=== PATIENT | female | born 2005 | race Caucasian/White ===

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

== ENCOUNTER 2023-01-25 15:08 | Emergency (ER) | payer BC, MEDICAID, SELFPAY ==
[2023-01-25 15:12] VITALS: BP 123/83; PULSE 92; O2SAT 97; BMI 29.9
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
[2023-01-25 15:52] LABS: Basophils # 0.1 10^3/uL (0.0-0.1); Basophils % 0.7 %; Eosinophils # 0.2 10^3/uL (0.0-0.8); Eosinophils % 2.7 %; Hematocrit 45.8 % (37.0-47.0); Hemoglobin 15.2 g/dL (11.5-15.3); Lymphocytes # 2.3 10^3/uL (1.5-6.5); Lymphocytes % 29.9 %; Mean Corpuscular HGB Conc 33.2 g/dL (30.0-36.0); Mean Corpuscular Hemoglobin 28.9 pg (28.0-34.0); Mean Corpuscular Volume 87.1 fl (81-99); Mean Platelet Volume 9.9 fL (7.4-10.4); Monocytes # 0.5 10^3/uL (0.2-0.9); Neutrophils % 58.4 %; Nucleated Red Blood Cells % 0 %; Platelet Count 279 10^3/cmm (130-400); Red Blood Count 5.26 10^6/uL (4.1-5.3); Red Cell Distribution Width 12.9 % (12.1-15.1); White Blood Count 7.5 10^3/uL (4.5-13.0)
[2023-01-25 16:20] LABS: Alanine Aminotransferase 15 U/L (0-33); Albumin Level 4.4 g/dL (3.5-5.2); Alkaline Phosphatase 123 U/L (35-105); Anion Gap 14.6 (5-19); Aspartate Amino Transferase 23 U/L (0-32); Blood Urea Nitrogen 7 mg/dL (6-20); Calcium 9.4 mg/dL (8.5-10.5); Carbon Dioxide 26 mmol/L (22-29); Chloride 106 mmol/L (98-107); Globulin 3.2 g/dL (1.3-4.6); Glomerular Filtration Rate 107.8 mL/min (90-130); Glucose 105 mg/dL (65-115); Osmolality Calculated 292 mOsm/kg (285-295); Potassium 4.6 mmol/L (3.5-5.1); Sodium 142 mmol/L (136-145); Total Bilirubin 0.3 mg/dL (0.15-1.2); Total Protein 7.6 g/dL (6.6-8.7)
[2023-01-25 17:30] LABS: HCG, Serum Qual Negative (Negative)
[2023-01-25 17:36] VITALS: BP 112/76; PULSE 84; TEMP 37.1; O2SAT 99
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
== END 2023-01-25 20:56 | disposition home or self-care (01) ==
PROVIDERS: Emergency Medicine; Family Medicine; Emergency Provider Nurse Practitioner Family; PCP Nurse Practitioner Family
DX: S39.012A Strain of muscle, fascia and tendon of lower back, initial encounter (principal); V59.9XXA Occupant (driver) (passenger) of pick-up truck or van injured in unspecified traffic accident, initial encounter
CPT/HCPCS: 36415; 72131; 80053; 84702; 84703; 85025; 99284

== ENCOUNTER 2023-04-26 08:00 | Emergency (ER) | payer MEDICAID, SELFPAY ==
--- NOTE | 2023-04-26 08:01 | W.ED.HA ---
HPI - Headache General: Chief Complaint: Headache Stated Complaint: migraine, since midnight Time Seen by Provider: 04/26/23 08:01 Source: patient Mode of arrival: ambulatory Limitations: no limitations History of Present Illness: Patient is a 17-year-old female with history of migraine headaches who presents to the emergency department complaining of headache onset since midnight last night. Patient states she has a history of migraines where she is normally able to [place] them with [id number] Ibuprofen and sleep, but states that she was unable to get rid of the migraine last night. She reports associated nausea and dizziness (which is typical for her migraines), and denies sensation of aura prior to headache. She has been seen by specialist for her migraines in the past, but was unable to receive special testing due to insurance complications. Her current migraine is rated at a 7/10 and has been constant since it came on last night. She denies any visual disturbances, syncope, chest pain, or any other symptoms. Bright lights make her migraines worse. Patient states that there is a possibility of , as she is 2 weeks late on her menstrual cycle. Denies any new or changes in medication. MD elicited complaint: headache Pertinent past history: migraines Onset (ago): hour(s) Onset description: gradually Severity: moderate Pain scale (0-10): 7 Quality & Timing: similar to previous headaches Exacerbating factors: light Relieving factors: nothing Context: occurred at rest Associated symptoms: Reports nausea; Deny chest pain, confusion, fever(s), lightheadedness, rash, syncope or vomiting Treatments prior to arrival: ibuprofen Review of Systems Const: Denies: fever(s) or chills Eyes: Denies: change in vision, blurry vision, photophobia, floaters or seeing flashes Card: Denies: chest pain, palpitations, irregular heart rhythm, lightheadedness, syncope or dyspnea on exertion Resp: Denies: dyspnea, productive cough or pain on inspiration GI: Reports: nausea; Denies: abdominal pain, vomiting, heartburn or diarrhea : Denies: dysuria Musc: Denies: neck pain, back pain or joint pain Skin/Breast: Denies: rash Neuro: Reports: headache(s) and dizziness; Denies: numbness in extremities, weakness in extremities, sensory changes, lack of coordination, difficulty walking, confusion or Slurred speech present PFSH ED PFSH: Medical History Gastroenteritis Migraine without aura No pertinent past medical history neghx:htn,dm,thyroid,dvt/pe Oral contraception initiation Surgical History [place] teeth extracted (~02/2020) Family History Grandfather Stroke Paternal Colon cancer Maternal--- dx at age 60 Grandmother Breast cancer Paternal-- unknown dx age Denies family history of Ovarian cancer Diabetes Clotting disorder Heart disease Hypercholesteremia Bleeding disorder Hypertension Uterine cancer Thyroid disease Physical Exam Const: COMMON NORMALS: no acute distress, patient oriented x3, no limitations, healthy appearing, alert and well nourished GENERAL APPEARANCE: cooperative ORIENTATION/CONSCIOUSNESS: Yes awake, Yes oriented to person, Yes oriented to place and Yes oriented to time HENMT: COMMON NORMALS: normocephalic and atraumatic HEAD & SCALP: normal to inspection, normocephalic and atraumatic FACE & SINUS: normal facial exam Eye: COMMON NORMALS: Equal, round and reactive pupils present and EOMs intact bilaterally GENERAL EYE: appearance normal, both eyes and all related structures and normal light reflex PUPIL: Yes Equal, round and reactive pupils present DIRECT OPHTHALMOSCOPY: Yes normal light reflex Neck/C-Spine: COMMON NORMALS: full ROM, no lymphadenopathy, supple and no meningeal signs Resp: COMMON NORMALS: normal respiratory effort and clear to auscultation bilaterally AUSCULTATION: clear to auscultation bilaterally Cardio: COMMON NORMALS: regular rate and regular rhythm RATE: regular rate RHYTHM: regular rhythm Extremity: COMMON NORMALS: normal to inspection GENERAL: Yes normal exam except as noted Neuro: WILDA COMA SCALE: document GCS findings [place] coma scale eye opening: Spontaneous [place] coma scale verbal response: Orientated [place] coma scale motor response: Obey commands [place] coma scale total score: 15 COMMON NORMALS: patient oriented x3, CN's II-XII intact bilaterally, moves all extremities, no focal motor deficits, no sensory deficits noted and gait normal SENSORIUM/ORIENTATION: Yes alert, Yes oriented to person, Yes oriented to place and Yes oriented to time MENINGEAL SIGNS: Yes no meningeal signs Skin: COMMON NORMALS: no rashes or lesions noted GENERAL SKIN EXAM: no rashes or lesions noted Course Vital Signs: Vital signs: Vital Signs Temperature 98.0 F 04/26/23 08:10 Pulse Rate 95 04/26/23 08:10 Respiratory Rate 16 04/26/23 08:10 Blood Pressure 140/89 04/26/23 08:10 Pulse Oximetry 96 04/26/23 08:10 Oxygen Delivery Me thod Room Air 04/26/23 08:10 MDM - Headache Medical Decision Making Patient is a 17-year-old female here with complaints of a migraine headache. She states she has a longstanding history of migraine headaches and states her headache today feels identical to previous headaches. She has no red flags on history or physical examination. Headache is much improved after IV medications given here. She feels ready to go home at this time. Recommend follow-up with her primary care provider. She states migraines are fairly infrequent and does not feel she needs prophylactic or prescription abortive therapy at this time. Return ED precautions given. Lab Data Laboratory Results HCG, Qual Negative (Negative) 04/26/23 08:24 Discharge Plan Discharge Patient Disposition: Home Clinical Impression: Migraine Qualifiers: Migraine type: without aura Status migrainosus presence: without status migrainosus Intractability: not intractable Qualified Code(s): G43.009 - Migraine without aura, not intractable, without status migrainosus Condition: Stable Prescriptions: No Action ibuprofen 200 mg Tablet 400 mg PO Q6H PRN (Reason: Pain) Discharge Orders: Discharge ED (Routine); Ordered 04/26/23 Ordered By: Tana Sainz Referrals: Tere Luo FNP [Primary Care Provider] - Patient Instructions: Headache - Migraine (Adult) Coding Level of Care Code ED Manager Personal for Madhavg Boby
[2023-04-26 08:10] VITALS: BP 140/89; PULSE 95; RESP 16; TEMP 36.7; O2SAT 96
[2023-04-26 08:12] VITALS: BMI 26.6
[2023-04-26 08:32] LABS: HCG Qualitative Urine. Negative (Negative)
[2023-04-26] MEDS: sodium chloride 0.9% 1,000 ML 999 ML IV (08:48)
[2023-04-26] MEDS: dexamethasone 10 mg/mL INJ 6 MG IVP (08:49)
[2023-04-26] MEDS: ketorolac 60 mg/2 mL INJ 30 MG IVP (08:49)
[2023-04-26] MEDS: ondansetron 2 mg/ML SDV 2 mL 4 MG IVP (08:49)
[2023-04-26] MEDS: diphenhydrAMINE 50 mg/mL SDV 1mL IVP (08:49)
== END 2023-04-26 09:59 | disposition home or self-care (01) ==
PROVIDERS: Emergency Provider Physician Assistant; PCP Nurse Practitioner Family
DX: G43.009 Migraine without aura, not intractable, without status migrainosus (principal)
CPT/HCPCS: 81025; 96374; 96375; 99284; J1100; J1200; J1885; J2405; J7030

== ENCOUNTER → 2023-08-16 08:44 | Outpatient (BNVA) | payer MEDICAID, SELFPAY | PROVIDERS: PCP Nurse Practitioner Family; Visit Provider Nurse Practitioner Family | DX: R11.0 Nausea (principal) | CPT/HCPCS: 81025 ==

== ENCOUNTER 2023-09-06 15:26 | Emergency (ER) | payer MEDICAID, SELFPAY ==
[2023-09-06 15:45] VITALS: BP 143/85; PULSE 76; RESP 16; O2SAT 98; BMI 32.4
--- NOTE | 2023-09-06 16:03 | ED_ITS ---
HPI - 2 General: Chief complaint: Vaginal Bleeding Stated complaint: vaginal bleeding, 9 weeks Time Seen by Provider: 09/06/23 15:48 Source: patient Mode of arrival: ambulatory History of Present Illness: 18-year-old female G2, P0 SAB 1 presents emergency room complaining vaginal bleeding. She has a confirmed intrauterine at approximately 9 weeks gestation. She had previously seen Dr. Vital of [facility] and confirmed an intrauterine by ultrasound. The patient and her were being intermittent today and she began to have some vaginal bleeding. It seemed excessive but stopped suddenly after they ceased activities. She has not had any further bleeding. She has no abdominal pain or cramping. Patient had a ultrasound of [facility] confirming intrauterine she actually showed me a picture that they had given her at the time of the ultrasound clearly demonstrates an intrauterine MD Complaint: abdominal pain Onset (ago): minute(s) Pain Consistency: intermittent and now resolved Relieving factors: none Exacerbating factors: other (Sexual activity) Vaginal bleeding: heavy (Resolved now) Associated symptoms: Reports vaginal bleeding; Deny abdominal pain, dyspareunia, dysuria, headache(s), malaise, nausea, rash, seizures, short of breath, syncope, vaginal discharge, visual changes, vomiting or weakness Review of Systems 2 Const: Denies: fever(s), chills or malaise Card: Denies: chest pain or syncope Resp: Denies: dyspnea GI: Denies: abdominal pain, nausea or vomiting : Reports: vaginal bleeding; Denies: dysuria, urinary frequency, urinary urgency, vaginal discharge or dyspareunia Musc: Denies: neck pain or back pain Skin/Breast: Denies: rash Neuro: Denies: headache(s) PFSH ED 2 PFSH: Medical History Oral contraception initiation Gastroenteritis Migraine without aura No pertinent past medical history neghx:htn,dm,thyroid,dvt/pe Surgical History [place] teeth extracted (~02/2020) Family History Grandfather Stroke Paternal Colon cancer Maternal--- dx at age 60 Grandmother Breast cancer Paternal-- unknown dx age Denies family history of Ovarian cancer Diabetes Clotting disorder Heart disease Hypercholesteremia Bleeding disorder Hypertension Uterine cancer Thyroid disease Physical Exam 2 Const: COMMON NORMALS: no acute distress GENERAL APPEARANCE: cooperative and comfortable ORIENTATION/CONSCIOUSNESS: Yes awake, Yes oriented to person, Yes oriented to place and Yes oriented to time HENMT: COMMON NORMALS: normocephalic, atraumatic and hearing grossly normal bilaterally HEAD & SCALP: normocephalic and atraumatic Resp: COMMON NORMALS: normal respiratory effort, No retractions, No use of accessory muscles and clear to auscultation bilaterally AUSCULTATION: clear to auscultation bilaterally Cardio: COMMON NORMALS: regular rate, regular rhythm and No murmurs present (Cardio) RATE: regular rate RHYTHM: regular rhythm GI: COMMON NORMALS: Soft to palpation and No hepatosplenomegaly present A USCULTATION: Yes normoactive bowel sounds PALPATION: Yes Soft to palpation, No Tenderness to palpation present (GI), No Guarding due to palpation present (GI) and Yes No hepatosplenomegaly present : SPECULUM EXAM - VAGINA: Yes vaginal bleeding OB/EXTERNAL & SPECULUM: v aginal bleeding Extremity: COMMON NORMALS: normal to inspection, capillary refill normal, no clubbing, cyanosis or edema, no calf tenderness and no pedal edema Neuro: SENSORIUM/ORIENTATION: Yes oriented to person, Yes oriented to place and Yes oriented to time Skin: COMMON NORMALS: no rashes or lesions noted GENERAL SKIN EXAM: no rashes or lesions noted Course 2 Vital Signs: Vital signs: Vital Signs Pulse Rate 75 09/06/23 16:48 Respiratory Rate 17 09/06/23 16:48 Blood Pressure 127/78 09/06/23 16:48 Pulse Oximetry 99 09/06/23 16:48 Oxygen Delivery Me thod Room Air 09/06/23 15:45 MDM - OB/Uterine Contractions Medical Decision Making Confirmed intrauterine vaginal bleeding after digital manipulation has resolved. Beta-hCG is actually slightly above expected range for 9 weeks gestation. Recommend repeat beta-hCG in 2 to 3 days. Medical Records I reviewed the patient's medical records. Lab Data I reviewed the patient's lab results. 09/06/23 16:44 09/06/23 16:44 Laboratory Results WBC 12.62 10^3/uL (4.5-13.0) 09/06/23 16:44 RBC 4.55 10^6/uL (3.85-5.65) 09/06/23 16:44 Hgb 13.70 g/dL (12.4-14.8) 09/06/23 16:44 Hct 40.6 % (36-47) 09/06/23 16:44 MCV 89.2 fl (85-98) 09/06/23 16:44 MCH 30.1 pg (27-33) 09/06/23 16:44 MCHC 33.7 g/dL (30-55) 09/06/23 16:44 RDW 12.8 % (12.1-15.1) 09/06/23 16:44 Plt Count 242 10^3/cmm (157-399) 09/06/23 16:44 MPV 9.8 fL (7.4-10.4) 09/06/23 16:44 Neut % (Auto) 68.9 % 09/06/23 16:44 Lymph % (Auto) 21.9 % 09/06/23 16:44 [place] % (Auto) 6.8 % 09/06/23 16:44 Eos % (Auto) 1.8 % 09/06/23 16:44 Baso % (Auto) 0.3 % 09/06/23 16:44 Neut # (Auto) 8.69 10^3/uL (1.8-8.0) H 09/06/23 16:44 Lymph # (Auto) 2.8 10^3/uL (1.5-6.5) 09/06/23 16:44 [place] # (Auto) 0.9 10^3/uL (0.2-0.9) 09/06/23 16:44 Eos # (Auto) 0.2 10^3/uL (0.0-0.8) 09/06/23 16:44 Baso # (Auto) 0.0 10^3/uL (0.0-0.1) 09/06/23 16:44 Nucleated RBC % (auto) 0 % 09/06/23 16:44 Nucleated RBCs # 0.0 /100WBC 09/06/23 16:44 Sodium 137 mmol/L (136-145) 09/06/23 16:44 Potassium 4.1 mmol/L (3.5-5.1) 09/06/23 16:44 Chloride 105 mmol/L (98-107) 09/06/23 16:44 Carbon Dioxide 21 mmol/L (22-29) L 09/06/23 16:44 Anion Gap 15.1 (5-19) 09/06/23 16:44 BUN 5 mg/dL (6-20) L 09/06/23 16:44 Creatinine 0.6 mg/dL (0.5-0.9) 09/06/23 16:44 GFR Calculation 127.5 mL/min (90-130) 09/06/23 16:44 Glucose 84 mg/dL (65-115) 09/06/23 16:44 Calculated Osmolality 280 mOsm/kg (285-295) L 09/06/23 16:44 Calcium 9.2 mg/dL (8.5-10.5) 09/06/23 16:44 Total Bilirubin 0.2 mg/dL (0.15-1.2) 09/06/23 16:44 AST 14 U/L (0-32) 09/06/23 16:44 ALT 17 U/L (0-33) 09/06/23 16:44 Alkaline Phosphatase 76 U/L (35-105) 09/06/23 16:44 Total Protein 6.7 g/dL (6.6-8.7) 09/06/23 16:44 Albumin 3.8 g/dL (3.5-5.2) 09/06/23 16:44 Globulin 2.9 g/dL (1.3-4.6) 09/06/23 16:44 Ser , Semi-Qnt 349053.00 mIU/mL 09/06/23 16:44 Urine Color Yellow (Yellow) 09/06/23 16:49 Urine Appearance Sl hazy (CLEAR) A 09/06/23 16:49 Urine pH 6 (5-7) 09/06/23 16:49 Ur Specific [place] 1.020 (1.005-1.030) 09/06/23 16:49 Urine Protein Neg (Negative) 09/06/23 16:49 Urine Glucose (UA) Norm (Normal) 09/06/23 16:49 Urine Ketones 1+ (Negative) H 09/06/23 16:49 Urine Blood 3+ (Negative) H 09/06/23 16:49 Urine Nitrate Negative (Negative) 09/06/23 16:49 Urine Bilirubin Neg (Negative) 09/06/23 16:49 Urine Urobilinogen Neg mg/dL (Negative) 09/06/23 16:49 Ur Leukocyte Esterase 2+ (Negative) H 09/06/23 16:49 Urine RBC 0-4 /hpf (0-2) H 09/06/23 16:49 Urine WBC 15-25 /hpf (0-5) H 09/06/23 16:49 Ur Squamous Epith Cells 5-10 /hpf (0-5) H 09/06/23 16:49 Amorphous Sediment Not Reportable 09/06/23 16:49 Urine Bacteria 2+ /hpf (NONE) H 09/06/23 16:49 Urine Mucus 1+ /hpf 09/06/23 16:49 No radiology studies performed this visit Discharge Plan Discharge Patient Disposition: Home Clinical Impression: Vaginal bleeding, Currently Condition: Stable Prescriptions: No Action ibuprofen 200 mg Tablet 400 mg PO Q6H PRN (Reason: Pain) Discharge Orders: Discharge ED (Routine); Ordered 09/06/23 Ordered By: Jeanmarie Edwards Referrals: Tere Luo FNP [Primary Care Provider] - Discharge Diet: Usual diet Discharge Activity: Increase activity as tolerated Patient Instructions: Opioid Safety, Pain Management Activity Restrictions/Additional Instructions: Thank you for choosing [facility] for your healthcare needs today. Please realize this is an emergency room and that we are providing you with a medical screening exam and this may not be complete and all inclusive of all the testing and or work up that you may need to determine your ailment or severity of your illness. It is very important that you follow up as instructed or that you return to the Emergency Department should you have concerns or if your condition changes or worsens in any way. You are seen today after an episode of vaginal bleeding. Your beta-hCG was over 200,000. Follow-up with your primary care doctor for repeat beta-hCG in 72 hours. Coding Level of Care Code ED Java Systems Analyst for Teresa Landis
[2023-09-06 16:48] VITALS: BP 127/78; PULSE 75; RESP 17; O2SAT 99
[2023-09-06 16:48] LABS: Basophils % 0.3 %; Eosinophils # 0.2 10^3/uL (0.0-0.8); Eosinophils % 1.8 %; Hematocrit 40.6 % (36-47); Lymphocytes # 2.8 10^3/uL (1.5-6.5); Lymphocytes % 21.9 %; Mean Corpuscular HGB Conc 33.7 g/dL (30-55); Mean Corpuscular Hemoglobin 30.1 pg (27-33); Mean Corpuscular Volume 89.2 fl (85-98); Mean Platelet Volume 9.8 fL (7.4-10.4); Monocytes # 0.9 10^3/uL (0.2-0.9); Monocytes % 6.8 %; Neutrophils # 8.69 10^3/uL (1.8-8.0); Neutrophils % 68.9 %; Nucleated Red Blood Cells % 0 %; Platelet Count 242 10^3/cmm (157-399); Red Blood Count 4.55 10^6/uL (3.85-5.65); Red Cell Distribution Width 12.8 % (12.1-15.1); White Blood Count 12.62 10^3/uL (4.5-13.0)
[2023-09-06 17:24] LABS: Alanine Aminotransferase 17 U/L (0-33); Albumin Level 3.8 g/dL (3.5-5.2); Alkaline Phosphatase 76 U/L (35-105); Anion Gap 15.1 (5-19); Aspartate Amino Transferase 14 U/L (0-32); Blood Urea Nitrogen 5 mg/dL (6-20); Calcium 9.2 mg/dL (8.5-10.5); Carbon Dioxide 21 mmol/L (22-29); Chloride 105 mmol/L (98-107); Globulin 2.9 g/dL (1.3-4.6); Glomerular Filtration Rate 127.5 mL/min (90-130); Glucose 84 mg/dL (65-115); Osmolality Calculated 280 mOsm/kg (285-295); Potassium 4.1 mmol/L (3.5-5.1); Sodium 137 mmol/L (136-145); Total Bilirubin 0.2 mg/dL (0.15-1.2); Total Protein 6.7 g/dL (6.6-8.7)
[2023-09-06 17:25] LABS: Protein Urine Neg (Negative); Urine Appearance SL Hazy (CLEAR); Urine Color Yellow (Yellow); pH Urine 6 (5-7)
[2023-09-06 17:26] LABS: Add Urine Microscopic? YES; Bilirubin Urine Neg (Negative); Blood Urine 3+ (Negative); Glucose Urine UA Norm (Normal); Ketones Urine 1+ (Negative); Leukocyte Esterase Urine 2+ (Negative); Nitrate Urine Negative (Negative); Urobilinogen Urine Neg (Negative)
[2023-09-06 17:27] LABS: Bacteria Urine 2+ /hpf; RBC Urine 0-4 /hpf (0-2); WBC Urine 15-25 /hpf (0-5)
[2023-09-06 17:29] LABS: Add Urine Culture? Yes; Mucus Urine 1+ /hpf
== END 2023-09-06 18:27 | disposition home or self-care (01) ==
PROVIDERS: Emergency Provider Family Medicine; PCP Nurse Practitioner Family
DX: O46.91 Antepartum hemorrhage, unspecified, first trimester (principal); Z3A.09 9 weeks gestation of pregnancy
CPT/HCPCS: 36415; 80053; 81001; 84702; 85025; 87086; 99283

== ENCOUNTER → 2023-11-26 17:03 | Outpatient (BNVA) | payer MEDICAID, SELFPAY | PROVIDERS: PCP Nurse Practitioner Family; Visit Provider Emergency Medicine | DX: J02.9 Acute pharyngitis, unspecified (principal); R05.9 Cough, unspecified | CPT/HCPCS: 87071; 87400; 87880 ==

== ENCOUNTER 2024-01-08 00:26 | Outpatient (CLI) | payer MEDICAID, SELFPAY ==
[2024-01-08 00:30] VITALS: BMI 32.8
[2024-01-08 00:44] VITALS: BP 127/77; PULSE 88
[2024-01-08 00:58] VITALS: RESP 16; TEMP 36
[2024-01-08 01:17] LABS: Amorphous Sediment Urine 1+ /hpf; Bacteria Urine 1+ /hpf; Bilirubin Urine Neg (Negative); Blood Urine Neg (Negative); Glucose Urine UA Norm (Normal); Ketones Urine Negative (Negative); Leukocyte Esterase Urine Negative (Negative); Nitrate Urine Negative (Negative); Protein Urine Neg (Negative); RBC Urine 0-4 /hpf (0-2); Specific Gravity, Urine 1.005 (1.005-1.030); Sulfosalicylic Acid Urine Negative (Negative); Urine Appearance Clear (CLEAR); Urine Color Colorless (Yellow); Urobilinogen Urine Neg (Negative); WBC Urine 0-4 /hpf (0-5); pH Urine 8 (5-7)
[2024-01-08 02:00] VITALS: BP 127/77; PULSE 88; RESP 16; TEMP 36
== END 2024-01-08 01:38 | disposition home or self-care (01) ==
LOC: OPOB 00:26 → OBGYN 00:27
PROVIDERS: PCP Nurse Practitioner Family; Visit Provider Family Medicine
DX: O26.899 Other specified pregnancy related conditions, unspecified trimester (principal); Z3A.00 Weeks of gestation of pregnancy not specified; R10.9 Unspecified abdominal pain
CPT/HCPCS: 81001; 99211

== ENCOUNTER → 2024-02-18 17:36 | Outpatient (BNVA) | payer MEDICAID, SELFPAY | PROVIDERS: PCP Nurse Practitioner Family; Visit Provider Registered Nurse Neonatal Intensive Care | DX: J02.9 Acute pharyngitis, unspecified (principal) | CPT/HCPCS: 87880 ==

== ENCOUNTER 2024-02-19 16:40 | Outpatient (CLI) | payer MEDICAID, SELFPAY ==
[2024-02-19 16:56] VITALS: BP 135/85; PULSE 108
[2024-02-19 17:02] VITALS: BMI 32.0
[2024-02-19 17:13] VITALS: BP 148/65; PULSE 102
[2024-02-19] MEDS: promethazine 25 mg Tablet PO (17:20)
[2024-02-19 17:26] VITALS: BP 127/70; PULSE 104
[2024-02-19 17:41] VITALS: BP 125/78; PULSE 104
[2024-02-19 18:00] VITALS: BP 125/78; PULSE 104
== END 2024-02-19 18:07 | disposition home or self-care (01) ==
LOC: OPOB 16:45 → OBGYN 16:45
PROVIDERS: PCP Nurse Practitioner Family; Visit Provider Family Medicine
DX: O21.9 Vomiting of pregnancy, unspecified (principal); Z3A.00 Weeks of gestation of pregnancy not specified
CPT/HCPCS: 59025; 99211; Q0169

== ENCOUNTER → 2024-02-21 13:58 | Outpatient (BNVA) | payer MEDICAID, SELFPAY | PROVIDERS: PCP Nurse Practitioner Family; Visit Provider Nurse Practitioner Family | DX: J02.9 Acute pharyngitis, unspecified (principal) | CPT/HCPCS: 87880 ==

== ENCOUNTER 2024-02-22 09:58 | Outpatient (CLI) | payer MEDICAID, SELFPAY ==
[2024-02-22 09:58] VITALS: BMI 32.0
[2024-02-22 10:12] VITALS: BP 127/74; PULSE 109
[2024-02-22 10:27] VITALS: BP 119/67; PULSE 98
== END 2024-02-22 10:46 | disposition home or self-care (01) ==
LOC: OPOB 10:03 → OBGYN 10:07
PROVIDERS: PCP Nurse Practitioner Family; Visit Provider Family Medicine
DX: O26.899 Other specified pregnancy related conditions, unspecified trimester (principal); Z3A.00 Weeks of gestation of pregnancy not specified; J00 Acute nasopharyngitis [common cold]
CPT/HCPCS: 59025; 99211

== ENCOUNTER 2024-03-10 22:14 | Outpatient (CLI) | payer MEDICAID, SELFPAY ==
[2024-03-10 22:15] VITALS: BMI 32.5
[2024-03-10 22:24] VITALS: BP 131/72; PULSE 90
[2024-03-10 22:39] VITALS: BP 126/70; PULSE 83
[2024-03-10 22:55] VITALS: BP 130/79; PULSE 84
== END 2024-03-10 23:10 | disposition home or self-care (01) ==
LOC: OPOB 22:15 → OBGYN 22:16
PROVIDERS: PCP Nurse Practitioner Family; Visit Provider Family Medicine
DX: O26.899 Other specified pregnancy related conditions, unspecified trimester (principal); Z3A.00 Weeks of gestation of pregnancy not specified; R10.9 Unspecified abdominal pain
CPT/HCPCS: 59025; 99211

== ENCOUNTER 2024-04-06 01:01 | Outpatient (CLI) | payer BC, MEDICAID, SELFPAY ==
[2024-04-06 00:54] VITALS: BMI 32.9
[2024-04-06 01:10] VITALS: BP 123/85; PULSE 78
[2024-04-06 02:03] VITALS: BP 129/88; PULSE 79
[2024-04-06 02:58] VITALS: BP 142/90; PULSE 58
[2024-04-06 03:18] VITALS: BP 131/79; PULSE 67
== END 2024-04-06 03:26 | disposition home or self-care (01) ==
LOC: OPOB 01:01 → OBGYN 01:03
PROVIDERS: PCP Nurse Practitioner Family; Visit Provider Family Medicine
DX: O26.899 Other specified pregnancy related conditions, unspecified trimester (principal); Z3A.00 Weeks of gestation of pregnancy not specified; R10.9 Unspecified abdominal pain; R10.2 Pelvic and perineal pain
CPT/HCPCS: 59025; 99211

== ENCOUNTER 2024-04-11 18:21 | Inpatient (IN) | payer BC, MEDICAID, SELFPAY ==
[2024-04-11] VITALS (50 sets, daily range): BP systolic 114–143; BP diastolic 55–96; PULSE 75–114; O2SAT 87–100; BMI 32.9
[2024-04-11 16:35] LABS: Nitrazine Paper, PH Positive
[2024-04-11 17:21] LABS: Basophils % 0.2 %; Eosinophils # 0.1 10^3/uL (0.0-0.8); Eosinophils % 0.9 %; Hematocrit 33.9 % (36-47); Lymphocytes # 1.6 10^3/uL (1.5-6.5); Lymphocytes % 12.3 %; Mean Corpuscular HGB Conc 33.6 g/dL (30-55); Mean Corpuscular Hemoglobin 28.9 pg (27-33); Mean Corpuscular Volume 85.8 fl (85-98); Mean Platelet Volume 11.6 fL (7.4-10.4); Monocytes # 0.8 10^3/uL (0.2-0.9); Monocytes % 6.5 %; Neutrophils # 10.31 10^3/uL (1.8-8.0); Neutrophils % 79.3 %; Nucleated Red Blood Cells % 0 %; Platelet Count 243 10^3/cmm (157-399); Red Blood Count 3.95 10^6/uL (3.85-5.65)
[2024-04-11] MEDS: dextrose 5%-lactated ringers 1,000 ML 125 ML IV (17:24)
[2024-04-11] MEDS: ampicillin 2,000 MG in sodium chloride 0.9% (plus) 50 ML 100 MG IV (17:25)
[2024-04-11] MEDS: oxytocin 30 UNIT/500 ML BAG IV (17:26)
[2024-04-11 17:31] LABS: Amphetamines Screen Urine Negative (Negative); Barbiturates Screen Urine Negative (Negative); Benzodiazepines Screen Urine Negative (Negative); Cocaine Screen Urine Negative (Negative); Opiate Screen Urine Negative (Negative); PCP Screen Urine Negative (Negative); THC Screen Urine Negative (Negative)
[2024-04-11] MEDS: lactated ringers 1,000 ML 999 ML IV (19:45)
--- NOTE | 2024-04-11 20:45 | ANES.PREANE2 ---
Pre-Anesthetic Assessment Height/Weight: Height 1.65 m Weight 89.811 kg Pulse BP Pulse Ox O2 Del Method 97 133/83 99 Room Air 04/11/24 20:40 04/11/24 20:40 04/11/24 20:37 04/11/24 15:35 Preop Diagnosis: Labor pain JACEK Was Beta Minnie taken within 24 hours: N/A Was Clonidine taken within 24 hours: N/A Social No alcohol and No tobacco Exam alert, oriented x 3, clear to auscultation bilaterally and regular rate & rhythm Airway Submandibular: within normal limits Cervical ROM: within normal limits Mallampati: Class II Dentition: full History/ROS No significant history except as noted and No significant complaints Pulmonary None reported CV/HEM None reported None reported Hepatic None reported GI None reported Metabolic None reported Musc/skel None reported Neuropsych None reported Anesthetic Plan ASA status: 2 Anesthesia: Anesthesia Evaluation and Regional (specify below) (JACEK) Risk of > 500 ml blood loss (7ml/kg in children): No Medications/Allergies Home Medications Medication Instructions Recorded Confirmed Last Taken Type 1 tab PO DAILY 01/08/24 03/10/24 Unknown History Allergies Allergy/AdvReac Type Severity Reaction Status Date / Time azithromycin Allergy Unknown Verified 04/06/24 03:05 cefdinir Allergy Unknown Verified 04/06/24 03:05 ceftin Allergy unknown Uncoded 04/06/24 03:05 Current Medications Generic Name Dose Route Start Last Admin Trade Name Freq PRN Reason Stop Dose Admin Dextrose/Lactated Ringer's 1,000 mls @ 125 mls/hr 04/11/24 16:30 04/11/24 17:24 Dextrose 5%-Lactated Ringers IV 125 mls/hr .Q8H JESS Administration Oxytocin 30 unit in 500 mls @ 1 mls/hr 04/11/24 16:45 04/11/24 18:45 Pitocin IV 3 milliunit/min .Q24H JESS 3 mls/hr Titration Protocol 1 MILLIUNIT/MIN Lactated Ringer's 1,000 mls @ 999 mls/hr 04/11/24 18:42 04/11/24 19:45 Lactated Ringers IV 999 mls/hr .Q1H1M PRN Administration See label comments PFSH Anesthesia Medical History Oral contraception initiation Gastroenteritis Migraine without aura No pertinent past medical history neghx:htn,dm,thyroid,dvt/pe Surgical History [place] teeth extracted (~02/2020) Family History Grandfather Stroke Paternal Colon cancer Maternal--- dx at age 60 Grandmother Breast cancer Paternal-- unknown dx age Denies family history of Ovarian cancer Diabetes Clotting disorder Heart disease Hypercholesteremia Bleeding disorder Hypertension Uterine cancer Thyroid disease Female Reproductive History Date of last menstrual period: 07/09/23 : 1 Data Anesthesia 04/11/24 16:40 Short CBC 04/11/24 Range/Units 16:40 WBC 13.00 (4.5-13.0) 10^3/uL Hgb 11.40 L (12.4-14.8) g/dL Hct 33.9 L (36-47) % MCV 85.8 (85-98) fl Plt Count 243 (157-399) 10^3/cmm Neut % (Auto) 79.3 % Neut # (Auto) 10.31 H (1.8-8.0) 10^3/uL Blood Bank 04/11/24 16:40 Blood Type A Positive Rho(D) Type Rh positive Antibody Screen Negative Cardiac Studies: No Data to Display
--- NOTE | 2024-04-11 20:46 | ANES.PROC ---
Anesthesia Procedures Procedure/Date: 04/11/24 Epidural: Time Out Performed: Yes Consents Signed: Procedure Consent Consent: requested by attending/covering physician, from patient, risks and benefits reviewed and patient agrees to proceed Lumbar Level: L2-L3 Epidural position: sitting Epidural procedure: sterile prep of area, 1% lidocaine to numb the area, 18 g needle, negative for paresthesia passed (left), test dose given, 1.5% xylocaine 1:200k epi (4cc), 0.2% Ropivacaine bolus ml (5cc and Fentanyl 100mcg), placed PCEA, no systemic response, sterile dressing applied and 0.2% Ropiavacaine @ mls/hr (13cc/hour) Additional Comments: Pt tolerated well
[2024-04-11] MEDS: ROPivacaine syringe 100 MG/50 ML SYRINGE 13 MG EPIDURAL ×2 (20:50→23:15)
[2024-04-11] MEDS: ampicillin 1,000 MG in sodium chloride 0.9% (plus) 50 ML 100 MG IV (21:04)
[2024-04-12] VITALS (17 sets, daily range): BP systolic 120–155; BP diastolic 64–95; PULSE 68–117; RESP 16; TEMP 35.7–36.6; O2SAT 98–99; BMI 32.9
[2024-04-12] MEDS: lidocaine 2% INJ 20 mL INJECTION (00:05)
--- NOTE | 2024-04-12 00:30 | P.HP_ITS ---
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 The patient states that she had started leaking approximately 3 AM and had a sudden increase loss of fluid prior to presentation. Patient states that she was yoanna sporadically at presentation. Patient's initial check was 3 cm and had a very irregular contraction pattern. Patient was started on Pitocin and contraction pattern started to improve. was initially not well engaged but then became vertex after the initiation of Pitocin. Patient then progressed as expected to complete dilation. was unremarkable except for GBS positive. Present Details : 1 Para: 0 Date of Last Menstrual Period: 07/09/23 Calculated Date of Delivery: 04/14/24 Gestational Age Based on Last Menstrual Period: 39 care: good care Obstetrical complications: none Medical complications OB: none Labs Blood type OB HPI: A (+) positive Rubella: Immune RPR: Negative GBS: Positive HBsAG: Negative Review of Systems 2 General: Reports: 10 or more systems reviewed and unremarkable except in HPI and below Medications/Allergies Home Medications Medication Instructions Recorded Confirmed Last Taken Type 1 tab PO DAILY 01/08/24 03/10/24 Unknown History Allergies Allergy/AdvReac Type Severity Reaction Status Date / Time azithromycin Allergy Unknown Verified 04/06/24 03:05 cefdinir Allergy Unknown Verified 04/06/24 03:05 ceftin Allergy unknown Uncoded 04/06/24 03:05 PFSH HOME OFFICE CLAIM SPECIALIST 2 PFSH: Medical History Oral contraception initiation Gastroenteritis Migraine without aura No pertinent past medical history neghx:htn,dm,thyroid,dvt/pe Surgical History [place] teeth extracted (~02/2020) Family History Grandfather Stroke Paternal Colon cancer Maternal--- dx at age 60 Grandmother Breast cancer Paternal-- unknown dx age Denies family history of Ovarian cancer Diabetes Clotting disorder Heart disease Hypercholesteremia Bleeding disorder Hypertension Uterine cancer Thyroid disease History History History 2 0 Term Miscarriages/Ectopic Living Children Vitals/I&O/Wt Last Vital Signs Temp 97.0 F L 04/12/24 00:07 Pulse 100 04/12/24 00:12 BP 122/73 04/12/24 00:12 Pulse Ox 99 04/11/24 21:23 O2 Del Method Room Air 04/11/24 15:35 04/11/24 04/11/24 04/12/24 14:59 22:59 06:59 Intake Total 1051.817 / 1051.817 50 / 1101.817 Balance 1051.817 / 1051.817 50 / 1101.817 Weight last 48 hrs Weight 89.811 kg Physical Exam 2 Const: COMMON NORMALS: average body habitus, no limitations, healthy appearing and alert Resp: COMMON NORMALS: normal respiratory effort and No retractions Cardio: COMMON NORMALS: no JVD, regular rate and regular rhythm GI: OTHER: Gravid uterus : COMMON NORMALS: Yes normal external appearance Extremity: COMMON NORMALS: no clubbing, cyanosis or edema Neuro: COMMON NORMALS: moves all extremities, no focal motor deficits and no sensory deficits noted Psych: COMMON NORMALS: mental status grossly normal and cooperative Skin: COMMON NORMALS: no rashes or lesions noted Urinary Catheter Management: Nelson: Cath Placed During This Visit: yes Urinary Catheter Date of Insertion: 04/11/24 Urinary Catheter Time of Insertion: 21:25 Data 04/11/24 16:40 Results Labs OB ([facility]): 2 Blood Type A Positive 04/11/24 Antibody Screen Negative 04/11/24 Hct 33.9 % (36-47) L 04/11/24 Hgb 11.40 g/dL (12.4-14.8) L 04/11/24 Rho(D) Type Rh positive 04/11/24 Plt Count 243 10^3/cmm (157-399) 04/11/24 TSH 2.32 uIU/mL (0.27-4.20) 06/27/20 Ser , Semi-Qnt 749912.00 mIU/mL 09/06/23 HCG, Qual Positive (Negative) H 08/16/23 Urine Opiates Screen Negative ng/mL (Negative) 04/11/24 Ur Barbiturates Screen Negative ng/mL (Negative) 04/11/24 Ur Phencyclidine Scrn Negative ng/mL (Negative) 04/11/24 Ur Amphetamines Screen Negative ng/mL (Negative) 04/11/24 U Benzodiazepines Scrn Negative ng/mL (Negative) 04/11/24 Urine Cocaine Screen Negative ng/mL (Negative) 04/11/24 U Marijuana (THC) Screen Negative ng/mL (Negative) 04/11/24 Micro Urine Specimen 09/06/23 Prolactin 11.21 ng/mL (4.8-23.3) 06/27/20 A&P Assessment and plan (1) Term : (2) Rupture of membranes with meconium present: Continue with labor management. (3) Positive GBS test: Patient was initiated on antibiotics on arrival. Attestations 2 Medical Necessity Statement*: Admitted for rupture membranes and labor. Anticipate greater than 2 midnight stay. Coding Level of Care Code Acute Code for Chg Fwd Diagnoses Term Z34.90 Rupture of membranes with meconium present O77.0 Positive GBS test B95.1
--- NOTE | 2024-04-12 00:39 | P.PCNOB_ITS ---
Delivery Note: Date of delivery: April 12, 2024 Pre-delivery diagnoses: Term intrauterine , rupture membranes with meconium Post-delivery diagnoses: Same, viable male Procedure: Spontaneous vaginal delivery Op report anesthesia: Epidural Estimated blood loss (mL): 300 Pre-Delivery Course: Patient presented with spontaneous rupture of membranes. Patient required Pitocin to regulate contractions and augment labor. Delivery: Once patient is completely dilated patient was placed into the normal lithotomy position. The patient started pushing with contractions. The patient delivered infant's head without difficulty followed by anterior shoulder on the rest of the body. was placed onto mother's abdomen. Significantly meconium stained amniotic fluid was noted. Infant's mouth was suctioned with bulb syringe. Cord then was clamped and cut. Placenta was then delivered soon after. Review of the perineum showed a small second-degree tear going up the le ft introitus. This was repaired with 3-0 Vicryl. Uterus was firm and below umbilicus and bleeding was managed. Post-Delivery Status: Stable History History History 0 Term Miscarriages/Ectopic Living Children A&P Assessment and plan (1) Normal spontaneous vaginal delivery: Proceed with routine care. Coding Level of Care Code Acute Code for Chg Fwd Diagnoses Normal spontaneous vaginal delivery O80
[2024-04-12] MEDS: HYDROcodone-acetaminophen 5-325 mg Tablet PO ×4 (01:35→20:42)
[2024-04-12] MEDS: benzocaine-menthol 78 gm Canister 1 SPRAY TOPICAL (01:35)
--- NOTE | 2024-04-12 07:16 | P.PN_ITS ---
RESIDENT INTERN Subjective 2 Subjective: Interval history: This is a 18-year-old G1, P1 that is post vaginal delivery day 1. No concerns overnight. Patient has been up ambulating some and has urinated without difficulty. Vital signs are stable. Patient states that she has a headache this morning, but blood pressures have been normal. Labor: Station: +2 Amniotic Membrane Status: Ruptured Monitor Mode: External Contraction Pattern: Regular Vitals/I&O/Wt Last Vital Signs Temp 96.6 F L 04/12/24 05:22 Pulse 68 04/12/24 05:22 BP 125/84 04/12/24 05:22 Pulse Ox 99 04/11/24 21:23 O2 Del Method Room Air 04/11/24 15:35 04/11/24 04/12/24 04/12/24 22:59 06:59 14:59 Intake Total 1065.784 / 1065.784 452.216 / 1518.000 Balance 1065.784 / 1065.784 452.216 / 1518.000 Weight last 48 hrs Weight 89.811 kg Physical Exam 2 Const: COMMON NORMALS: average body habitus, no limitations, healthy appearing and alert Neck/C-Spine: COMMON NORMALS: no JVD Resp: COMMON NORMALS: normal respiratory effort and No retractions Cardio: COMMON NORMALS: no JVD, regular rate and regular rhythm RATE: r egular rate RHYTHM: regular rhythm GI: OTHER: Uterus firm and below umbilicus Extremity: COMMON NORMALS: no clubbing, cyanosis or edema Neuro: COMMON NORMALS: moves all extremities, no focal motor deficits and no sensory deficits noted SENSORIUM/ORIENTATION: Yes alert Psych: COMMON NORMALS: mental status grossly normal and cooperative Skin: COMMON NORMALS: no rashes or lesions noted GENERAL SKIN EXAM: no rashes or lesions noted Urinary Catheter Management: Nelson: Cath Placed During This Visit: yes Urinary Catheter Date of Insertion: 04/11/24 Urinary Catheter Time of Insertion: 21:25 Data 04/11/24 16:40 A&P Assessment and plan (1) Normal spontaneous vaginal delivery: (2) care and examination: Continue with routine care. Attestations 2 Medical Necessity Statement*: Anticipate greater than 2 midnight stay Coding Level of Care Code Acute Code for Chg Fwd Diagnoses Normal spontaneous vaginal delivery O80 care and examination Z39.2
[2024-04-12] MEDS: docusate sodium 100 mg Capsule PO ×2 (08:35→20:42)
[2024-04-12] MEDS: PRENATAL VIT NO.130/IRON/FOLIC 1 EACH TABLET PO (08:36)
[2024-04-12] MEDS: ibuprofen 800 mg tablet PO ×3 (08:36→20:42)
--- NOTE | 2024-04-12 11:14 | PM.MISC ---
Miscellaneous Note Purpose of Documentation: Headache Note: Patient denotes positional headache, which increases in intensity with upright positioning. Offered blood patch. Patient would like to decline blood patch at this time, stating she currently is able to care for baby in the upright position, headache isn't That bad. And she would prefer to wait for self resolution rather than risk second puncture.
[2024-04-12 13:20] LABS: Hematocrit 26.3 % (36-47); Mean Corpuscular HGB Conc 33.5 g/dL (30-55); Mean Corpuscular Hemoglobin 29.4 pg (27-33); Mean Platelet Volume 11.7 fL (7.4-10.4); Platelet Count 215 10^3/cmm (157-399); Red Blood Count 2.99 10^6/uL (3.85-5.65); Red Cell Distribution Width 13.2 % (12.1-15.1); White Blood Count 16.87 10^3/uL (4.5-13.0)
[2024-04-12] MEDS: calcium carbonate 500 mg Chew Tablet 1000 MG PO (14:31)
--- NOTE | 2024-04-12 15:18 | PC.NURSE ---
transferred via wheelchair to OB10 for post stay. oriented to room, call light, proud parent pack.
[2024-04-13] MEDS: HYDROcodone-acetaminophen 5-325 mg Tablet PO (03:05)
[2024-04-13 03:09] VITALS: BP 127/81; PULSE 70; RESP 18; TEMP 36.9; O2SAT 97
--- NOTE | 2024-04-13 06:01 | P.PN_ITS ---
SECURITY ASSESSOR Subjective 2 Subjective: Interval history: This is a 18-year-old G1, P1 that is status post day 2 from spontaneous vaginal delivery. Patient has no acute concerns today. Vital signs have been stable. Bleeding has been appropriate. Pain is well-managed. Labor: Station: +2 Amniotic Membrane Status: Ruptured Monitor Mode: External Contraction Pattern: Regular Post /CS: Patient comments OB post-: no complaints, pain well controlled and tolerating diet [place] baby status: doing well and bottle feeding well feeding status: exclusively bottle feeding Vitals/I&O/Wt Last Vital Signs Temp 98.4 F 04/13/24 03:09 Pulse 70 04/13/24 03:09 Resp 18 04/13/24 03:09 BP 127/81 04/13/24 03:09 Pulse Ox 97 04/13/24 03:09 O2 Del Method Room Air 04/13/24 03:09 04/12/24 04/12/24 04/13/24 14:59 22:59 06:59 Intake Total 2600 / 2600 Balance 2600 / 2600 Weight last 48 hrs Weight 89.811 kg Weight 89.811 kg Physical Exam 2 Const: COMMON NORMALS: average body habitus, no limitations, healthy appearing and alert Neck/C-Spine: COMMON NORMALS: no JVD Resp: COMMON NORMALS: normal respiratory effort and No retractions Cardio: COMMON NORMALS: no JVD, regular rate and regular rhythm RATE: r egular rate RHYTHM: regular rhythm GI: OTHER: Uterus firm and below umbilicus Extremity: COMMON NORMALS: no clubbing, cyanosis or edema Neuro: COMMON NORMALS: moves all extremities, no focal motor deficits and no sensory deficits noted SENSORIUM/ORIENTATION: Yes alert Psych: COMMON NORMALS: mental status grossly normal and cooperative Skin: COMMON NORMALS: no rashes or lesions noted GENERAL SKIN EXAM: no rashes or lesions noted Urinary Catheter Management: Nelson: Cath Placed During This Visit: yes, but has since been removed by the nurse Reason for Continuing Indwelling Catheter: Decision to DC Catheter Urinary Catheter Date of Insertion: 04/11/24 Urinary Catheter Time of Insertion: 21:25 Date Urinary Catheter Removed: 04/11/24 Time Urinary Catheter Discontinued: 23:45 Data 04/12/24 13:04 A&P Assessment and plan (1) care and examination: Continue with routine care. (2) Normal spontaneous vaginal delivery: Attestations 2 Medical Necessity Statement*: Likely discharge tomorrow after 48 hours given prolonged rupture membranes and GBS positive. Coding Level of Care Code Acute Code for Chg Fwd Diagnoses care and examination Z39.2 Normal spontaneous vaginal delivery O80
--- NOTE | 2024-04-13 08:00 | ANE.PACU2 ---
Inpatient post-anesthesia follow up: Airway intact: Yes Vital signs: Temperature 97.5 F Pulse Rate 69 Respiratory Rate 16 Blood Pressure 134/70 Pulse Oximetry 98 Oxygen Delivery Me thod Room Air Oxygen Flow Rate Fraction of Inspir ed Oxygen Hydration adequate: Yes Nausea and vomiting: No Pain level: 1 Mental status: Baseline Epidural Start/End: Epidural Start Date: 04/11/24 Epidural Start Time: 20:15 Epidural End Date: 04/12/24 Epidural End Time: 02:00
[2024-04-13] MEDS: docusate sodium 100 mg Capsule PO (09:36)
[2024-04-13] MEDS: PRENATAL VIT NO.130/IRON/FOLIC 1 EACH TABLET PO (09:36)
[2024-04-13] MEDS: ibuprofen 800 mg tablet PO ×2 (09:36→15:21)
[2024-04-13 09:37] VITALS: BP 117/74; PULSE 68; TEMP 36.4; O2SAT 98
[2024-04-13 15:20] VITALS: BP 132/83; PULSE 78; TEMP 36.6
[2024-04-13 19:00] VITALS: BP 134/70; PULSE 69; RESP 16; TEMP 36.4
[2024-04-13 19:20] VITALS: BP 134/70; PULSE 69; RESP 16; TEMP 36.4
--- NOTE | 2024-04-14 19:01 | P.DS_ITS ---
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 The patient had ruptured approximately 12 hours prior to arrival. Patient was not yoanna regularly at presentation so Pitocin was started. There was concerns about presentation initially but this did presented to vertex once contractions Started. Patient was started on amoxicillin on arrival due to positive GBS. Patient slowly progressed with augmentation to complete dilation. Patient did deliver a viable male without difficulty. Patient did have prolonged rupture of membranes. Patient received 2 doses of amoxicillin prior to delivery. The patient had no significant care complications. Information Peripartum Data: Infant Delivery Method: Vaginal Laceration description: Perineal - 2nd Degree complications: none Physical Exam Const: COMMON NORMALS: average body habitus, no limitations, healthy appearing and alert Neck/C-Spine: COMMON NORMALS: no JVD Resp: COMMON NORMALS: normal respiratory effort and No retractions Cardio: COMMON NORMALS: no JVD, regular rate and regular rhythm RATE: regular rate RHYTHM: regular rhythm GI: OTHER: Uterus firm and below umbilicus Extremity: COMMON NORMALS: no clubbing, cyanosis or edema Neuro: COMMON NORMALS: moves all extremities, no focal motor deficits and no sensory deficits noted SENSORIUM/ORIENTATION: Yes alert Psych: COMMON NORMALS: mental status grossly normal and cooperative Skin: COMMON NORMALS: no rashes or lesions noted GENERAL SKIN EXAM: no rashes or lesions noted Urinary Catheter Management: Nelson: Cath Placed During This Visit: yes, but has since been removed by the nurse Reason for Continuing Indwelling Catheter: Decision to DC Catheter Urinary Catheter Date of Insertion: 04/11/24 Urinary Catheter Time of Insertion: 21:25 Date Urinary Catheter Removed: 04/11/24 Time Urinary Catheter Discontinued: 23:45 History History History 0 Term Miscarriages/Ectopic Living Children Discharge Data Studies Completed and Pending Laboratory Results WBC 16.87 10^3/uL (4.5-13.0) H 04/12/24 13:04 RBC 2.99 10^6/uL (3.85-5.65) L 04/12/24 13:04 Hgb 8.80 g/dL (12.4-14.8) L 04/12/24 13:04 Hct 26.3 % (36-47) L 04/12/24 13:04 MCV 88.0 fl (85-98) 04/12/24 13:04 MCH 29.4 pg (27-33) 04/12/24 13:04 MCHC 33.5 g/dL (30-55) 04/12/24 13:04 RDW 13.2 % (12.1-15.1) 04/12/24 13:04 Plt Count 215 10^3/cmm (157-399) 04/12/24 13:04 MPV 11.7 fL (7.4-10.4) H 04/12/24 13:04 Neut % (Auto) 79.3 % 04/11/24 16:40 Lymph % (Auto) 12.3 % 04/11/24 16:40 [place] % (Auto) 6.5 % 04/11/24 16:40 Eos % (Auto) 0.9 % 04/11/24 16:40 Baso % (Auto) 0.2 % 04/11/24 16:40 Neut # (Auto) 10.31 10^3/uL (1.8-8.0) H 04/11/24 16:40 Lymph # (Auto) 1.6 10^3/uL (1.5-6.5) 04/11/24 16:40 [place] # (Auto) 0.8 10^3/uL (0.2-0.9) 04/11/24 16:40 Eos # (Auto) 0.1 10^3/uL (0.0-0.8) 04/11/24 16:40 Baso # (Auto) 0.0 10^3/uL (0.0-0.1) 04/11/24 16:40 Nucleated RBC % (auto) 0 % 04/11/24 16:40 Nucleated RBCs # 0.0 /100WBC 04/11/24 16:40 Fluid pH (paper) Positive H 04/11/24 16:13 Urine Opiates Screen Negative ng/mL (Negative) 04/11/24 16:04 Ur Barbiturates Screen Negative ng/mL (Negative) 04/11/24 16:04 Ur Phencyclidine Scrn Negative ng/mL (Negative) 04/11/24 16:04 Ur Amphetamines Screen Negative ng/mL (Negative) 04/11/24 16:04 U Benzodiazepines Scrn Negative ng/mL (Negative) 04/11/24 16:04 Urine Cocaine Screen Negative ng/mL (Negative) 04/11/24 16:04 U Marijuana (THC) Screen Negative ng/mL (Negative) 04/11/24 16:04 Blood Type A Positive 04/11/24 16:40 Rho(D) Type Rh positive 04/11/24 16:40 Antibody Screen Negative 04/11/24 16:40 Vitals Last Vital Signs Temp 97.5 F L 04/13/24 19:20 Pulse 69 04/13/24 19:20 Resp 16 04/13/24 19:20 BP 134/70 04/13/24 19:20 Pulse Ox 98 04/13/24 09:37 O2 Del Method Room Air 04/13/24 09:37 Results Labs OB ([facility]): Blood Type A Positive 04/11/24 Antibody Screen Negative 04/11/24 Hct 26.3 % (36-47) L 04/12/24 Hgb 8.80 g/dL (12.4-14.8) L 04/12/24 Rho(D) Type Rh positive 04/11/24 Plt Count 215 10^3/cmm (157-399) 04/12/24 TSH 2.32 uIU/mL (0.27-4.20) 06/27/20 Ser , Semi-Qnt 848725.00 mIU/mL 09/06/23 HCG, Qual Positive (Negative) H 08/16/23 Urine Opiates Screen Negative ng/mL (Negative) 04/11/24 Ur Barbiturates Screen Negative ng/mL (Negative) 04/11/24 Ur Phencyclidine Scrn Negative ng/mL (Negative) 04/11/24 Ur Amphetamines Screen Negative ng/mL (Negative) 04/11/24 U Benzodiazepines Scrn Negative ng/mL (Negative) 04/11/24 Urine Cocaine Screen Negative ng/mL (Negative) 04/11/24 U Marijuana (THC) Screen Negative ng/mL (Negative) 04/11/24 Micro Urine Specimen 09/06/23 Prolactin 11.21 ng/mL (4.8-23.3) 06/27/20 Discharge Plan Discharge Patient Disposition: Home Prescriptions: Continued 1 tab PO DAILY Discharge Orders: Discharge Order (Routine); Ordered 04/13/24 Ordered By: Grzegorz Vital Referrals: Grzegorz Vital MD [Physician] - 6 Weeks (Please call tomorrow morning to set up a follow up appointment to be seen in 6 weeks.) Discharge Diet: Usual diet Discharge Activity: Limit activity as instructed Patient Instructions: Depression (DC), Opioid Safety (DC), Preeclampsia and Eclampsia After Delivery (GEN), Hemorrhage (DC), OB Discharge Report, OB Food/Drug Interaction Guide, OB Care at Home, Opioid Safety, OB Vaginal Deliveries, Abnormal Bleeding Discharge Attestations 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
== END 2024-04-13 19:20 | disposition home or self-care (01) | DRG 807 ==
LOC: OPOB 18:45 → OBGYN 18:45
PROVIDERS: Admitting Provider Family Medicine; PCP Nurse Practitioner Family; Visit Provider Family Medicine
DX: O99.824 Streptococcus B carrier state complicating childbirth (principal); Z37.0 Single live birth; O77.0 Labor and delivery complicated by meconium in amniotic fluid; O42.02 Full-term premature rupture of membranes, onset of labor within 24 hours of rupture; O70.1 Second degree perineal laceration during delivery; Z3A.39 39 weeks gestation of pregnancy; R51.9 Headache, unspecified
CPT/HCPCS: 36415; 51702; 59025; 80306; 83986; 85025; 85027; 86850; 86900; 96374; 99211; J0290; J2590; J2795; J3010; J7120; J7121

== ENCOUNTER 2024-06-19 20:02 | Emergency (ER) | payer BC, MEDICAID, SELFPAY ==
[2024-06-19 20:10] VITALS: BP 118/78; PULSE 79; RESP 16; TEMP 36.7; O2SAT 98; BMI 29.7
--- NOTE | 2024-06-19 20:18 | XRR_ITS ---
PROCEDURE INFORMATION: Exam: XR Right Ankle Exam date and time: 06/19/2024 8:41 PM Age: 18 years old Clinical indication: Injury or trauma; Fall; Blunt trauma; Ankle; Right; Additional info: Fall, injury, pain TECHNIQUE: Imaging protocol: Radiologic exam of the right ankle. Views: 3 or more views. COMPARISON: No relevant prior studies available. FINDINGS: Bones/joints: Acute nondisplaced lateral malleolar fracture and avulsive injury of the inferior tip. Medial and posterior malleoli are grossly intact. Soft tissues: Prominent soft tissue edema, lateral greater than medial. XR/XR ankle RT min 3V* [id number] IMPRESSION: 1. Acute nondisplaced lateral malleolar fracture and avulsive injury of the inferior tip.
[2024-06-19] MEDS: naproxen 500 mg Tablet PO (20:35)
--- NOTE | 2024-06-19 21:14 | ED_ITS ---
HPI - Extremity Problem General: Chief complaint: Extremity Injury, Lower Stated complaint: Rt Ankle Injury Time Seen by Provider: 06/19/24 20:17 Source: patient Mode of arrival: ambulatory Limitations: no limitations History of Present Illness: Patient is a 18-year-old female presenting to the emergency department complaining of right ankle injury prior to arrival. States she was walking on steps when she had an inversion ankle injury and fell to the ground. Reports inability to bear weight due to the pain. Swelling is reported, and states most of her pain is to the lateral aspect. No previous fractures to that foot. Took Tylenol prior to coming in which she states helped a little bit. No other symptoms reported at this time. MD Complaint: joint pain Location: right and lower extremity (Ankle) Radiation: proximal Exacerbating factors: weight bearing Associated symptoms: Deny chest pain, fever(s) or rash Related Data Home Medications Medication Instructions Recorded Confirmed 1 tab PO DAILY 01/08/24 04/12/24 Allergies Allergy/AdvReac Type Severity Reaction Status Date / Time azithromycin Allergy Unknown Verified 06/19/24 20:14 cefdinir Allergy Unknown Verified 06/19/24 20:14 ceftin Allergy unknown Uncoded 06/19/24 20:14 Review of Systems General: Reports: 10 or more systems reviewed and unremarkable except in HPI and below Const: Denies: fever(s) or chills Card: Denies: chest pain Resp: Denies: dyspnea or productive cough GI: Denies: abdominal pain, nausea, vomiting or diarrhea : Denies: flank pain Musc: Reports: joint pain (Right ankle) and joint swelling (Right ankle); Denies: neck pain, back pain, extremity pain, extremity swelling, joint redness, joint warmth or muscle weakness Skin/Breast: Denies: rash Neuro: Denies: headache(s), numbness in extremities or weakness in extremities PFSH ED PFSH: Medical History Oral contraception initiation Gastroenteritis Migraine without aura No pertinent past medical history neghx:htn,dm,thyroid,dvt/pe Surgical History [place] teeth extracted (~02/2020) Family History Grandfather Stroke Paternal Colon cancer Maternal--- dx at age 60 Grandmother Breast cancer Paternal-- unknown dx age Denies family history of Ovarian cancer Diabetes Clotting disorder Heart disease Hypercholesteremia Bleeding disorder Hypertension Uterine cancer Thyroid disease Physical Exam Const: COMMON NORMALS: no acute distress, patient oriented x3, no limitations, healthy appearing, alert and well nourished HENMT: COMMON NORMALS: normocephalic and atraumatic HEAD & SCALP: normocephalic and atraumatic Neck/C-Spine: COMMON NORMALS: full ROM, supple and no meningeal signs Resp: COMMON NORMALS: normal respiratory effort, No use of accessory muscles and clear to auscultation bilaterally AUSCULTATION: clear to auscultation bilaterally Cardio: COMMON NORMALS: regular rate and regular rhythm RATE: regular rate RHYTHM: regular rhythm Extremity: COMMON NORMALS: capillary refill normal NARRATIVE EXTREMITY EXAM: Moderate amount of swelling to lateral malleolus of right ankle. Tenderness to palpation of this area extending proximally up the right lateral leg. Pain with all range of motion, worse with ankle inversion. Also has significant pain with dorsiflexion of the right foot. Pulses palpable. Neuro: COMMON NORMALS: patient oriented x3, moves all extremities, no focal motor deficits and no sensory deficits noted SENSORIUM/ORIENTATION: Yes alert MENINGEAL SIGNS: Yes no meningeal signs Skin: COMMON NORMALS: no rashes or lesions noted GENERAL SKIN EXAM: no rashes or lesions noted Course Vital Signs: Vital signs: Vital Signs Temperature 98.1 F 06/19/24 20:10 Pulse Rate 71 06/20/24 00:10 Respiratory Rate 16 06/19/24 20:10 Blood Pressure 124/68 06/20/24 00:10 Pulse Oximetry 93 06/20/24 00:10 Oxygen Delivery Me thod Room Air 06/19/24 21:30 MDM - Extremity (Nontraumatic) Medical Decision Making Patient presented for right ankle injury just prior to arrival. Right a bit of swelling to the lateral malleolus of the right ankle, essentially no weightbearing tolerated due to the pain. Range of motion painful in all planes, however worse with inversion. An x-ray did demonstrate a distal fibular frac ture that was nondisplaced, so she will be placed in a posterior short leg splint with stirrup and refer to podiatry for further monitoring/evaluation. She was given 1 [place] here, encouraged to alternate Tylenol ibuprofen at home. Return precautions given. Her post splint neurovascular status intact and she is provided with crutches for ambulation out of the emergency department. Lab Data Radiology Impressions Ankle X-Ray 06/19/24 20:18 IMPRESSION: 1. Acute nondisplaced lateral malleolar fracture and avulsive injury of the inferior tip. No radiology studies performed this visit Discharge Plan Discharge Patient Disposition: Home Clinical Impression: Fracture of distal end of fibula Qualifiers: Encounter type: initial encounter Fracture type: closed Fracture morphology: unspecified fracture morphology Laterality: right Qualified Code(s): S82.831A - Other fracture of upper and lower end of right fibula, initial encounter for closed fracture Condition: Stable Prescriptions: No Action 1 tab PO DAILY Discharge Orders: Discharge ED (Routine); Ordered 06/19/24 Ordered By: Adelfo Carrillo Referrals: Tere Luo FNP [Primary Care Provider] - Discharge Diet: Usual diet Discharge Activity: Limit activity as instructed Patient Instructions: Leg Fracture (ED) Activity Restrictions/Additional Instructions: Nonweightbearing as discussed. Follow-up with podiatry. Tylenol and ibuprofen at home for pain. Elevate the extremity and limit activity as also discussed. Return with any new or concerning symptoms. Coding Level of Care Code ED Litigation Associate for Teresa Landis
[2024-06-19 21:30] VITALS: BP 120/85; PULSE 82; O2SAT 95
[2024-06-19] MEDS: HYDROcodone-acetaminophen 5-325 mg Tablet 1 TAB PO (22:36)
[2024-06-20 00:10] VITALS: BP 124/68; PULSE 71; O2SAT 93
--- NOTE | 2024-06-20 08:57 | DCPLANNER ---
Message sent to Podiatry
== END 2024-06-19 23:30 | disposition home or self-care (01) ==
PROVIDERS: Emergency Provider Physician Assistant; PCP Nurse Practitioner Family
DX: S82.831A Other fracture of upper and lower end of right fibula, initial encounter for closed fracture (principal); X50.1XXA Overexertion from prolonged static or awkward postures, initial encounter
CPT/HCPCS: 73610; 99283

== ENCOUNTER 2024-06-21 00:35 | Emergency (ER) | payer SELFPAY ==
[2024-06-21 00:51] VITALS: BP 139/86; PULSE 76; RESP 18; TEMP 36.6; O2SAT 97; BMI 29.7
--- NOTE | 2024-06-21 01:15 | ED_ITS ---
HPI - Extremity Problem General: Chief complaint: Extremity Problem,Nontraumatic Stated complaint: Rt Pinky Toe Throbbing Time Seen by Provider: 06/21/24 00:53 History of Present Illness: Patient complaining of her right pinky toe throbbing and also her heel. She was seen yesterday after she missed a step and was found to have a broken distal fibula and was placed in a splint. Patient says she is try to keep it elevated all day today but has a 2-month-old and has to take care of her. Patient says she found some hydrocodone around the house that she has had it but it did not provide her any relief. Patient already has appointment with orthopedics but is not for about 2 weeks. Related Data Home Medications Medication Instructions Recorded Confirmed 1 tab PO DAILY 01/08/24 04/12/24 Previous Rx's Medication Instructions Recorded meloxicam 7.5 mg tablet 7.5 mg PO .Twice daily #14 tabs 06/21/24 Allergies Allergy/AdvReac Type Severity Reaction Status Date / Time azithromycin Allergy Unknown Verified 06/21/24 00:55 cefdinir Allergy Unknown Verified 06/21/24 00:55 ceftin Allergy unknown Uncoded 06/21/24 00:55 Review of Systems General: Reports: 10 or more systems reviewed and unremarkable except in HPI and below PFSH ED PFSH: Medical History Oral contraception initiation Gastroenteritis Migraine without aura No pertinent past medical history neghx:htn,dm,thyroid,dvt/pe Surgical History [place] teeth extracted (~02/2020) Family History Grandfather Stroke Paternal Colon cancer Maternal--- dx at age 60 Grandmother Breast cancer Paternal-- unknown dx age Denies family history of Ovarian cancer Diabetes Clotting disorder Heart disease Hypercholesteremia Bleeding disorder Hypertension Uterine cancer Thyroid disease Female Reproductive History: Date of last menstrual period: 06/14/24 Physical Exam Const: COMMON NORMALS: no acute distress, average body habitus, patient oriented x3, no limitations, healthy appearing, alert and well nourished Neck/C-Spine: COMMON NORMALS: no JVD Chest: COMMONS NORMALS: normal inspection of the chest and normal palpation of entire chest wall Resp: COMMON NORMALS: normal respiratory effort, No retractions, No use of accessory muscles and clear to auscultation bilaterally AUSCULTATION: clear to auscultation bilaterally Cardio: COMMON NORMALS: no JVD, regular rate, regular rhythm, S1 normal heart sound present, S2 normal heart sound present, No gallops present (Cardio), No clicks present (Cardio), No murmurs present (Cardio) and No rub (Cardio) RATE: regular rate RHYTHM: regular rhythm HEART SOUNDS: S1 normal heart sound present and S2 normal heart sound present GI: COMMON NORMALS: Normal to inspection, nondistended, normoactive bowel sounds present, Soft to palpation, non-tender, No hepatosplenomegaly present and no masses PALPATION: Yes Soft to palpation and Yes No hepatosplenomegaly present Extremity: NARRATIVE EXTREMITY EXAM: Splint removed on right lower extremity, bruising noted to right pinky toe and right posterior fibular calcaneal area. Patient said this helped with her pain. Neuro: COMMON NORMALS: patient oriented x3 SENSORIUM/ORIENTATION: Yes alert Course Vital Signs: Vital signs: Vital Signs Temperature 97.8 F 06/21/24 00:51 Pulse Rate 76 06/21/24 00:51 Respiratory Rate 18 06/21/24 00:51 Blood Pressure 139/86 06/21/24 00:51 Pulse Oximetry 97 06/21/24 00:51 Oxygen Delivery Me thod Room Air 06/21/24 00:51 MDM - Extremity (Nontraumatic) Medical Decision Making Foot was unwrapped splint was taken off and we wrapped looser. Patient was given 1 shot of Toradol. Patient be discharged on meloxicam. Patient should keep her appointment to orthopedic surgery she already has. Medical Records I reviewed the patient's medical records. Lab Data I reviewed the patient's lab results. All radiology interpretation(s) finalized by discharge Discharge Plan Discharge Patient Disposition: Home Clinical Impression: Fracture of distal end of fibula Qualifiers: Encounter type: initial encounter Fracture type: closed Fracture morphology: unspecified fracture morphology Laterality: right Qualified Code(s): S82.831A - Other fracture of upper and lower end of right fibula, initial encounter for closed fracture Condition: Stable Prescriptions: New meloxicam 7.5 mg tablet 7.5 mg PO .Twice daily Qty: 14 0RF No Action 1 tab PO DAILY Discharge Orders: Discharge ED (Routine); Ordered 06/21/24 Ordered By: Arron Triplett Referrals: Tere Luo FNP [Primary Care Provider] - 1 week Patient Instructions: Pain Management, Fractures - Ankle Activity Restrictions/Additional Instructions: We have rewrapped your ankle splint looser as this may be the cause of some of your increased pain numbness and tingling. We have also changed your pain medicine to a medicine called meloxicam. Please pick this up at the pharmacy and take this as directed. Continue your appointment already scheduled with the orthopedic surgeon. If your pain continues to be uncontrolled or worsen please feel free to return to the ER. Coding Level of Care Code ED Echocardiograph Tech for Teresa Landis
[2024-06-21] MEDS: ketorolac 60 mg/2 mL INJ IM (01:34)
[2024-06-21 02:51] VITALS: BP 112/69; PULSE 72; O2SAT 97
== END 2024-06-21 02:54 | disposition home or self-care (01) ==
PROVIDERS: Emergency Provider Emergency Medicine; PCP Nurse Practitioner Family
DX: S82.831A Other fracture of upper and lower end of right fibula, initial encounter for closed fracture (principal); W10.8XXA Fall (on) (from) other stairs and steps, initial encounter
CPT/HCPCS: 96372; 99284; J1885

== ENCOUNTER → 2024-07-04 15:21 | Outpatient (BNVA) | payer BC, MEDICAID, SELFPAY | PROVIDERS: PCP Nurse Practitioner Family; Visit Provider Podiatrist Foot & Ankle Surgery | DX: S92.251A Displaced fracture of navicular [scaphoid] of right foot, initial encounter for closed fracture (principal); S82.831A Other fracture of upper and lower end of right fibula, initial encounter for closed fracture; W10.8XXA Fall (on) (from) other stairs and steps, initial encounter | CPT/HCPCS: 73610; 73620 ==

== ENCOUNTER 2024-07-04 15:33 | Outpatient (CLI) | payer SELFPAY | END 2024-07-04 15:34 | disposition home or self-care (01) | LOC: SPT 15:33 | PROVIDERS: PCP Nurse Practitioner Family; Visit Provider Podiatrist Foot & Ankle Surgery | DX: Z46.89 Encounter for fitting and adjustment of other specified devices (principal); S92.251D Displaced fracture of navicular [scaphoid] of right foot, subsequent encounter for fracture with routine healing; S82.831D Other fracture of upper and lower end of right fibula, subsequent encounter for closed fracture with routine healing; S99.911D Unspecified injury of right ankle, subsequent encounter; X58.XXXD Exposure to other specified factors, subsequent encounter | CPT/HCPCS: L1902 ==

== ENCOUNTER 2025-05-12 19:43 | Emergency (ER) | payer BC, MEDICAID, SELFPAY ==
--- OUTSIDE RECORDS SUMMARY | 2021-03-14 04:59 | XMS_ITS | Continuity of Care Document ---
Author Organization [facility] Address [address] [id number] [address] Phone Care Team Providers Care Hot Die Press Feeder Name Role Phone Coordinator, Care Unavailable Unavailable Allergies, Adverse Reactions, Alerts Substance Reaction Status Criticality azithromycin Active No Information Medications Medication Instructions Dosage Effective Dates (start - stop) Status Comments amoxicillin 500 mg capsule take 1 capsule by oral route every 8 hours 500 MG - Active [place] 5 mg-325 mg tablet take 1 tablet by oral route every 6 hours as needed for pain - Active For pain from Oral Surgery ibuprofen 800 mg tablet take 1 tablet by oral route 3 times every day with food 800 MG - Active Anti-inflammator y caused by Oral Surgery Peridex 0.12 % mouthwash place 15 milliliter by mucous membrane route 2 times every day in the mouth (after meals), swish in mouth for 30 seconds then spit out 15.00 milliliter - Active Antimicrobial mouth rinse after Oral Surgery clonazepam 0.5 mg tablet Take 1 (one) tablet by oral route the night before procedure. Take 1 (one) tablet 1 (one) hour prior to appointment. - Active Percocet 5 mg-325 mg tablet take 1 (one) tablet by oral route 1 (one) hour prior to procedure. Bring other tablet to appointment with you. - Active SPRINTEC (unknown strength) take 1 tablet by oral route every day Not Available - Active Procedures Procedure Date Removal Of Impacted Tooth Completely Bony Removal Of Impacted Tooth Completely Bony Removal Of Impacted Tooth Completely Bony Removal Of Impacted Tooth Completely Bony Non-Intravenous Conscious Sedation EDR Approval Note Limited Oral Evaluation Problem Focused Limited Oral Evaluation Problem Focused EDR Approval Note Limited Oral Evaluation Problem Focused EDR Approval Note Advance Directives Directive Yes / No Effective Date File Name No Information Encounters Encounter Description Practice Location Reason(s) For Visit Diagnoses Date Provider Providers Copied on Encounter [facility], [id number], [id number], [place] tel:[phone] [facility] No Information 1 [facility]. [address], [place], [id number], [place]. tel:[phone] [facility], [id number], [id number], [place] tel:[phone] [facility] Encounter for dental exam and cleaning w/o abnormal findings 0 Amalia Rodgers. [address] [place] [address], [address], [place]. tel:[phone] Referring Provider: Vishal Holland, [address] [place] [address], [address]. tel:[phone] [facility], [id number], [id number], [place] tel:[phone] [facility] Encounter for dental exam and cleaning w/o abnormal findings 0 Amalia Rodgers. [address] [place] [address], [address], [place]. tel:[phone] Referring Provider: Vishal Holland, [address] [place] [address], [facility]. tel:[phone] [facility], [id number] [facility], [place], [place], [id number], [place] tel:[phone] [facility] Encounter for dental exam and cleaning w/o abnormal findings 0 No Information [facility], [id number] [facility], [place], [place], [id number], [place] tel:[phone] [facility] Encounter for dental exam and cleaning w/o abnormal findings 9 No Information Family History Family Member Type Diagnosis Age At Onset No Information Payers Payer name Insurance type Covered republican ID Cammie blakely(s) Jenni [employer] [id number] Social History Type Description Quantity Date Captured Comments Alcohol Use Details Unknown Caffeine Use Details Unknown Tobacco Use Status No Information Smoking Status No Information Sex Female Chief Complaint And Reason For Visit No Information Reason For Referral Reason For Referral No Information History Of Present Illness Encounter Date Complaint History Of Prese nt Illness No Information Functional Status Date Functional Assessmen t No Information Instructions Date Instruction Additional Infor johnny Lifestyle education Related to D ental Examination Lifestyle education Related to D ental Examination Lifestyle education Related to D ental Examination Lifestyle education Related to D ental Examination Assessments Type Assessment Date No Information Patient Care Teams Name Effective Dates (start - stop) Status Members No Information
[2025-05-12 19:49] VITALS: BP 112/73; PULSE 87; RESP 18; TEMP 36.9; O2SAT 97; BMI 31.8
--- NOTE | 2025-05-12 20:04 | USR_ITS ---
PROCEDURE INFORMATION: Exam: US , Limited Exam date and time: 05/12/2025 10:17 PM Age: 19 years old Clinical indication: complicated by abdominal or pelvic pain; Lower; Second trimester (14 weeks 0 days to 27 weeks 6 days); Gestational age or lmp: 16w0d; ; Additional info: Bilat pelvic and flank pain 16w preg LABS AND CLINICAL REPORTS: Gestational age (Established): 16 w 0 d Estimated due date (Established): 10/27/2025 TECHNIQUE: Imaging protocol: Real-time ultrasound of the maternal uterus with image documentation. Exam focused on the clinical indication. COMPARISON: US OB >= 14 weeks fetus [id number] 12/01/2023 11:32 AM FINDINGS: Gestation: Single intrauterine heart rate: 152 bpm BIOMETRY: Estimated weight: 142.03 g. EFW by AC, BPD, FL, HC, [place] 1985 (41.5%) Biparietal diameter (BPD): 3.21 cm. EGA (BPD) is 16 w 0 d. 47.3 % percentile Head circumference (HC): 12.08 cm. EGA (HC) is 16 w 0 d. 36.1 % percentile Abdominal circumference (AC): 10.03 cm. EGA (AC) is 16 w 0 d. 53.7 % percentile Femur length (FL): 2 cm. EGA (FL) is 16 w 0 d. 43.2 % percentile HC/AC: 1.2. (Normal range: 1.06 - 1.34) FL/HC: 16.56. (Normal range: 13.3 - 16.5) FL/BPD: 62.31 FL/AC: 19.94 MATERNAL: Cervix: Cervical length measures 4.6 cm. US/US OB limited [id number] IMPRESSION: Intrauterine , biometrics as above.
[2025-05-12 21:01] LABS: Hematocrit 37.6 % (36-47); Hemoglobin 12.10 g/dL (11.27-16.99); Mean Corpuscular HGB Conc 32.2 g/dL (30-55); Mean Corpuscular Hemoglobin 26.7 pg (27-33); Mean Corpuscular Volume 83.0 fl (85-98); Nucleated Red Blood Cells % 0 %; Platelet Count 240 10^3/cmm (157-399); Red Blood Count 4.53 10^6/uL (3.85-5.65); White Blood Count 11.81 10^3/uL (3.29-11.43)
--- NOTE | 2025-05-12 21:05 | ED_ITS ---
HPI - Abdominal Pain 2 General: Chief Complaint: Abdominal Pain Stated Complaint: inner thigh rib crampin and side pain 16 wks Time Seen by Provider: 05/12/25 20:04 History of Present Illness: 19-year-old female at 16 weeks gest ation presenting with lower abdominal cramping and back pain for 2 days. Patient is a 19-year-old female at 16 weeks gestation who presents with a 2-day history of lower abdominal cramping and back pain. She describes the pain as starting with groin pain that radiated to her lower back. She reports intermittent episodes of pain that takes her breath away. Patient denies vaginal bleeding or discharge. She reports decreased movement, stating she has not felt the baby kick for the last few days. She denies fever, shortness of breath, chest pain, pain with breathing, dysuria, or changes in urination. Patient mentions a history of morning sickness requiring monitoring of blood pressure and blood sugar due to poor nutritional intake, though she states this has not occurred in the past few days. Related Data Previous Rx's ?Medication ?Instructions ?Recorded meloxicam 7.5 mg tablet 7.5 mg PO .Twice daily #14 t abs 06/21/24 ASO to right #1 ea 07/04/24 amoxicillin 875 mg-potassium 1 tab PO BID 7 days #14 t abs 05/12/25 clavulanate 125 mg tablet Allergies Allergy/AdvReac Type Severity Reaction Status Date / Time azithromycin Allergy Unknown Verified 05/12/25 19:57 cefdinir Allergy Unknown Verified 05/12/25 19:57 cefuroxime (From Ceftin) Allergy Unconscious Verified 05/12/25 19:57 Review of Systems 2 Narrative: Constitutional: Denies fever. Respiratory: Denies shortness of breath, chest pain, or pain with breathing. Cardiovascular: Denies chest pain. Gastrointestinal: Reports history of morning sickness, though not in the past few days. Genitourinary: Denies dysuria, changes in urination, vaginal bleeding, or discharge. Musculoskeletal: Reports lower back pain and lower abdominal cramping. Neurological: Denies numbness or tingling in legs. PFSH ED 2 PFSH: Medical History Normal spontaneous vaginal delivery Positive GBS test Oral contraception initiation Gastroenteritis Migraine without aura No pertinent past medical history neghx:htn,dm,thyroid,dvt/pe Surgical History [place] teeth extracted (~02/2020) Family History Grandfather Stroke Paternal Colon cancer Maternal--- dx at age 60 Grandmother Breast cancer Paternal-- unknown dx age Denies family history of Ovarian cancer Diabetes Clotting disorder Heart disease Hypercholesteremia Bleeding disorder Hypertension Uterine cancer Thyroid disease Social History Smoking and tobacco/nicotine status: never used tobacco/nicotine Physical Exam 2 Const: COMMON NORMALS: no acute distress GENERAL APPEARANCE: cooperative; not ill appearing and not frail appearing HENMT: COMMON NORMALS: normocephalic, atraumatic and Normal external nose present HEAD & SCALP: normocephalic and atraumatic FACE & SINUS: normal facial exam and face symmetric NOSE: Normal external nose present Eye: COMMON NORMALS: Equal, round and reactive pupils present and EOMs intact bilaterally PUPIL: Yes Equal, round and reactive pupils present Neck/C-Spine: GENERAL: Yes trachea midline Chest: CHEST: Yes Symmetrical chest wall rise Resp: COMMON NORMALS: normal respiratory effort, No retractions, No use of accessory muscles and clear to auscultation bilaterally AUSCULTATION: clear to auscultation bilaterally Cardio: COMMON NORMALS: regular rate and regular rhythm RATE: regular rate RHYTHM: regular rhythm GI: COMMON NORMALS: Normal to inspection, nondistended, normoactive bowel sounds present PALPATION: Yes Tenderness to palpation present (GI) (suprapubic) Details: LLQ and RLQ : BLADDER/KIDNEY EXAM: Yes CVA tenderness bilateral (mild) Back/Pelvis: GENERAL BACK: Yes CVA tenderness Extremity: COMMON NORMALS: no pedal edema Neuro: WILDA COMA SCALE: document GCS findings [place] coma scale eye opening: Spontaneous [place] coma scale verbal response: Orientated [place] coma scale motor response: Obey commands Wild[place] coma scale total score: 15 S ENSORY EXAM: Yes extremities (intact) Psych: COMMON NORMALS: speech normal SPEECH: Yes normal speech Skin: COMMON NORMALS: no rashes or lesions noted GENERAL SKIN EXAM: no rashes or lesions noted Course 2 Vital Signs: Vital signs: Vital Signs Temperature 98.4 F 05/12/25 19:49 Pulse Rate 76 05/12/25 23:43 Respiratory Rate 16 05/12/25 23:43 Blood Pressure 118/70 05/12/25 23:43 Pulse Oximetry 100 05/12/25 23:43 Oxygen Delivery Me thod Room Air 05/12/25 19:49 MDM - Abdominal Pain Medical Decision Making Patient somewhat improved after fluid here. White blood cell count is 12. No left shift. CRP is 9. Bicarbonate is 21. She received a fluid bolus. She has significant urinary tract infection with 51-100 white blood cells and 2+ leukocyte esterase. It is slightly contaminated, but still positive. She is allergic to ceftriaxone. She received Zosyn here. She will go home on Augmentin. OB ultrasound revealed an intrauterine at 16 weeks with normal heart rate, appropriate activity, and no pelvic fluid or other abnormalities. She knows to return for any new or worsening symptoms despite treatment. Lab Data 05/12/25 20:52 05/12/25 20:52 Labs/Radiology: Radiology Impressions Obstetrics Ultrasound 05/12/25 20:04 IMPRESSION: Intrauterine , biometrics as above. Laboratory Results WBC 11.81 10^3/uL (3.29-11.43) H 05/12/25 20:52 RBC 4.53 10^6/uL (3.85-5.65) 05/12/25 20:52 Hgb 12.10 g/dL (11.27-16.99) 05/12/25 20:52 Hct 37.6 % (36-47) 05/12/25 20:52 MCV 83.0 fl (85-98) L 05/12/25 20:52 MCH 26.7 pg (27-33) L 05/12/25 20:52 MCHC 32.2 g/dL (30-55) 05/12/25 20:52 RDW 14.7 % (12.1-15.1) 05/12/25 20:52 Plt Count 240 10^3/cmm (157-399) 05/12/25 20:52 MPV 10.7 fL (7.4-10.4) H 05/12/25 20:52 Neut % (Auto) 75.0 % 05/12/25 20:52 Lymph % (Auto) 15.7 % 05/12/25 20:52 Casey % (Auto) 7.3 % 05/12/25 20:52 Eos % (Auto) 1.4 % 05/12/25 20:52 Baso % (Auto) 0.2 % 05/12/25 20:52 Neut # (Auto) 8.87 10^3/uL (1.8-7.7) H 05/12/25 20:52 Lymph # (Auto) 1.9 10^3/uL (0.8-4.8) 05/12/25 20:52 Casey # (Auto) 0.9 10^3/uL (0.2-0.9) 05/12/25 20:52 Eos # (Auto) 0.2 10^3/uL (0.0-0.8) 05/12/25 20:52 Baso # (Auto) 0.0 10^3/uL (0.0-0.1) 05/12/25 20: Nucleated RBC % (auto) 0 % 05/12/25 20: Nucleated RBCs # 0.0 /100WBC 05/12/25 20:52 Sodium 139 mmol/L (136-145) 05/12/25 20:52 Potassium 3.8 mmol/L (3.5-5.1) 05/12/25 20:52 Chloride 105 mmol/L (98-107) 05/12/25 20:52 Carbon Dioxide 21 mmol/L (22-29) L 05/12/25 20:52 Anion Gap 16.8 (5-19) 05/12/25 20:52 BUN 6 mg/dL (6-20) 05/12/25 20:52 Creatinine 0.6 mg/dL (0.5-0.9) 05/12/25 20:52 GFR Calculation 126.2 mL/min (90-130) 05/12/25 20:52 Glucose 80 mg/dL (65-115) 05/12/25 20:52 Calculated Osmolality 285 mOsm/kg (285-295) 05/12/25 20:52 Calcium 8.9 mg/dL (8.5-10.5) 05/12/25 20:52 Total Bilirubin 0.2 mg/dL (0.15-1.2) 05/12/25 20:52 AST 15 U/L (0-32) 05/12/25 20:52 ALT 17 U/L (0-33) 05/12/25 20:52 Alkaline Phosphatase 98 U/L (35-105) 05/12/25 20:52 C-Reactive Protein 9.1 mg/L (0.0-4.9) H 05/12/25 20:52 Total Protein 6.7 g/dL (6.6-8.7) 05/12/25 20:52 Albumin 3.7 g/dL (3.5-5.2) 05/12/25 20:52 Globulin 3.0 g/dL (1.3-4.6) 05/12/25 20: Lipase 26 U/L (13-60) 05/12/25 20:52 Ser , Semi-Qnt 78088.00 mIU/mL 05/12/25 20:52 Urine Color Yellow (Yellow) 05/12/25 20:48 Urine Appearance Cloudy (CLEAR) A 05/12/25 20:48 Urine pH 6.0 (5-7) 05/12/25 20:48 Ur Specific Berry 1.025 (1.005-1.030) 05/12/25 20:48 Urine Protein Trace (Negative) A 05/12/25 20:48 Urine Glucose (UA) Negative (Normal) 05/12/25 20:48 Urine Ketones Trace (Negative) 05/12/25 20:48 Urine Blood Negative (Negative) 05/12/25 20:48 Urine Nitrate Negative (Negative) 05/12/25 20:48 Urine Bilirubin Negative (Negative) 05/12/25 20:48 Urine Urobilinogen 1.0 mg/dL (Negative) 05/12/25 20:48 Ur Leukocyte Esterase 2+ (Negative) A 05/12/25 20:48 Urine RBC 0-2 /hpf (0-2) 05/12/25 20:48 Urine WBC 51-100 /hpf (0-5) H 05/12/25 20:48 Ur Squamous Epith Cells 11-20 /hpf (0-5) H 05/12/25 20:48 Amorphous Sediment Not Reportable 05/12/25 20:48 Urine Bacteria 4+ /hpf (NONE) H 05/12/25 20:48 Hyaline Casts 2.87 /lpf 05/12/25 20:48 All radiology interpretation(s) finalized by discharge Discharge Plan Discharge Patient Disposition: Home Clinical Impression: UTI (urinary tract infection) during Condition: Stable Prescriptions: New amoxicillin-pot clavulanate 875-125 mg tablet 1 tab PO BID 7 Days Qty: 14 0RF No Action (DME) ASO to right See Rx Instructions .Route .MEDSUPPLY Qty: 1 0RF Rx Instructions: As directed meloxicam 7.5 mg tablet 7.5 mg PO .Twice daily Qty: 14 0RF Discharge Orders: Discharge ED (Routine); Ordered 05/12/25 Ordered By: Farooq Yancey Referrals: Grzegorz Vital MD [Physician, Family Practice] - 1-3 days Tere Luo FNP [Primary Care Provider, Unknown] Patient Instructions: Urinary Tract Infection in (ED), Opioid Safety, Pain Management, Patient Portal & [place] Instructions Activity Restrictions/Additional Instructions: Plenty of clear liquids. Antibiotics as directed. Take Tylenol for pain. Return for increasing pain despite treatment, vomiting liquids or medications, fever despite 2-3 doses of antibiotics, loss of bladder or other fluid, any other concerning symptoms. Follow-up with your doctor Print Language: [place] Coding Level of Care Code ED [place] Tanner for Teresa Landis
[2025-05-12 21:06] LABS: Glucose Urine UA Negative (Normal); Nitrate Urine Negative (Negative); Specific Gravity, Urine 1.025 (1.005-1.030)
[2025-05-12 21:10] LABS: Add Urine Microscopic? YES
[2025-05-12 21:25] LABS: Alanine Aminotransferase 17 U/L (0-33); Albumin Level 3.7 g/dL (3.5-5.2); Alkaline Phosphatase 98 U/L (35-105); Anion Gap 16.8 (5-19); Aspartate Amino Transferase 15 U/L (0-32); Blood Urea Nitrogen 6 mg/dL (6-20); Calcium 8.9 mg/dL (8.5-10.5); Carbon Dioxide 21 mmol/L (22-29); Chloride 105 mmol/L (98-107); Creatinine Clr Calc Pharmacy 161.4307; Globulin 3.0 g/dL (1.3-4.6); Glucose 80 mg/dL (65-115); Lipase 26 U/L (13-60); Osmolality Calculated 285 mOsm/kg (285-295); Potassium 3.8 mmol/L (3.5-5.1); Sodium 139 mmol/L (136-145); Total Protein 6.7 g/dL (6.6-8.7)
[2025-05-12 21:29] LABS: UA Slide Review UA Slide Review Perf
[2025-05-12] MEDS: piperacillin-tazobactam 3.375 GM in sodium chloride 0.9% (plus) 50 ML IV (23:04)
[2025-05-12 23:43] VITALS: BP 118/70; PULSE 76; RESP 16; O2SAT 100
== END 2025-05-12 23:44 | disposition home or self-care (01) ==
PROVIDERS: Emergency Provider Emergency Medicine; PCP Nurse Practitioner Family
DX: O23.42 Unspecified infection of urinary tract in pregnancy, second trimester (principal); N39.0 Urinary tract infection, site not specified; Z3A.16 16 weeks gestation of pregnancy
CPT/HCPCS: 76815; 80053; 81001; 83690; 84702; 85025; 86140; 87086; 96361; 96365; 99284; J2543; J7030

== ENCOUNTER 2025-07-26 12:27 | Outpatient (CLI) | payer BC, MEDICAID, SELFPAY ==
[2025-07-26 12:21] VITALS: BMI 30.6
[2025-07-26 12:38] VITALS: BP 122/83; PULSE 88; RESP 16; TEMP 36.6; O2SAT 98
[2025-07-26] MEDS: ondansetron 2 mg/ML SDV 2 mL 4 MG IVP (13:02)
[2025-07-26 13:08] VITALS: BP 115/73; PULSE 87
[2025-07-26 13:38] VITALS: BP 94/63; PULSE 85
[2025-07-26 14:10] VITALS: BP 94/63; PULSE 85; RESP 16; TEMP 36.6; O2SAT 98
== END 2025-07-26 14:10 | disposition home or self-care (01) ==
LOC: OPOB 12:30 → OBGYN 12:31
PROVIDERS: PCP Nurse Practitioner Family; Visit Provider Family Medicine
DX: O26.899 Other specified pregnancy related conditions, unspecified trimester (principal); Z3A.00 Weeks of gestation of pregnancy not specified; R11.2 Nausea with vomiting, unspecified; R10.9 Unspecified abdominal pain; R19.7 Diarrhea, unspecified
CPT/HCPCS: 59025; 99211; J2405; J7120; J9999

== ENCOUNTER 2025-09-05 01:43 | Outpatient (CLI) | payer BC, MEDICAID, SELFPAY ==
[2025-09-05 01:50] VITALS: BP 117/74; PULSE 83; TEMP 35.8
[2025-09-05 02:05] VITALS: BP 106/64; PULSE 80
[2025-09-05 02:20] VITALS: BP 99/57; PULSE 80
[2025-09-05 02:35] VITALS: BP 101/57; PULSE 78
[2025-09-05 03:24] VITALS: BP 101/57; PULSE 78; O2SAT 98
== END 2025-09-05 02:45 | disposition home or self-care (01) ==
LOC: OPOB 01:44 → OBGYN 01:45
PROVIDERS: PCP Nurse Practitioner Family; Visit Provider Family Medicine
DX: O13.9 Gestational [pregnancy-induced] hypertension without significant proteinuria, unspecified trimester (principal); Z3A.00 Weeks of gestation of pregnancy not specified; R51.9 Headache, unspecified
CPT/HCPCS: 59025; 99211